=== PATIENT | female | born 1965 | race Two or more races ===

== ENCOUNTER 2024-10-05 19:31 | Emergency (ER) | payer MEDICAID, SELFPAY ==
[2024-10-05 19:41] VITALS: PULSE 74; RESP 20; O2SAT 99
[2024-10-05 20:16] VITALS: BP 166/90; PULSE 99; RESP 18; TEMP 36.9; O2SAT 98; BMI 31.8
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
[2024-10-05] MEDS: IBUPROFEN TAB 400 MG TABLET 800 MG PO (20:44)
[2024-10-05 21:26] VITALS: RESP 20
== END 2024-10-05 21:26 | disposition home or self-care (01) ==
PROVIDERS: Emergency Provider Emergency Medicine; PCP Family Medicine; Referring Provider Emergency Medicine
DX: S39.012A Strain of muscle, fascia and tendon of lower back, initial encounter (principal); S76.011A Strain of muscle, fascia and tendon of right hip, initial encounter; V89.2XXA Person injured in unspecified motor-vehicle accident, traffic, initial encounter
CPT/HCPCS: 72100; 73502; 99283; A9270